=== PATIENT | male | born 1975 | race Hispanic/Latino ===

== ENCOUNTER 2018-03-06 15:17 | Emergency (ER) | payer OTHER ==
[2018-03-06] MEDS ORDERED: Ibuprofen 800 MG TAB ONE (15:38)
--- NOTE | 2018-03-06 16:23 | RAD ---
PA AND LATERAL VIEWS CHEST: Date: 03/06/18 HISTORY: Chest pain, left chest injury. FINDINGS: The heart size is normal. The lungs are expanded without lobar consolidation, pneumothoraces, or pleu ral effusions. No acute osseous abnormalities are seen. IMPRESSION: No radiographic evidence of acute cardiopulmonary process. If there is high clinical suspicion for intrathoracic injury, further evaluation with contrast enhanc ed CT scan of the chest should be performed. POS: [facility]
== END 2018-03-06 16:10 | disposition home or self-care (01) ==
LOC: MADERS 15:17
DX: S20.212A Contusion of left front wall of thorax, initial encounter (principal); K21.9 Gastro-esophageal reflux disease without esophagitis; Z79.899 Other long term (current) drug therapy; W17.89XA Other fall from one level to another, initial encounter
CPT/HCPCS: 71046